=== PATIENT | female | born 1955 | race Caucasian/White ===

== ENCOUNTER → 2020-08-11 13:17 | Outpatient (CLI) | payer OTHER, SELFPAY ==
[2020-08-12 10:35] LABS: COVID19 Sendout Not Detected (Not Detected)
== END ==
PROVIDERS: Visit Provider Physician Assistant
DX: Z11.59 Encounter for screening for other viral diseases (principal)
CPT/HCPCS: 87635

== ENCOUNTER 2020-08-28 05:08 | Emergency (ER) | payer OTHER, SELFPAY ==
[2020-08-28 05:16] VITALS: BP 181/94; PULSE 86; RESP 18; TEMP 36.6; O2SAT 98; BMI 35.5
--- NOTE | 2020-08-28 05:32 | ED_ITS ---
HPI - GI Bleed General Chief complaint: GI Bleed Stated complaint: Bloody Stool Time Seen by Provider: 08/28/20 05:10 Source: patient Mode of arrival: Ambulatory Limitations: no limitations History of Present Illness HPI Narrative: Patient is a 64-year-old female here for evaluation of 2 episodes where she had loose stools and then blood on the paper when she wiped. She reports throughout the past 12 hours she has had increasing gas and has gone to the bathroom multiple times. She has been on antibiotics for the several days secondary to a sinus infection. She denies any urinary symptoms. No recent travel. Denies any abdominal pain. No vomiting. She did have a colonoscopy approximately 10 years ago and was told that everything was normal. Related Data Allergies Allergy/AdvReac Type Severity Reaction Status Date / Time No Known Drug Allergies Allergy Verified 08/28/20 05:14 Review of Systems Constitutional Constitutional: Denies fever(s) Cardiovascular Cardiovascular: Denies chest pain and Denies dyspnea Respiratory Respiratory: Denies dyspnea Gastrointestinal Gastrointestinal: Denies abdominal pain, Reports hematochezia, Reports loose stools, Denies nausea and Denies vomiting Genitourinary Genitourinary: Denies dysuria Genitourinary: Denies dysuria Musculoskeletal Musculoskeletal: Denies arthralgias and Denies myalgias Integumentary/Breasts Skin/Breast: Denies rash Hematologic/Lymphatic Hematologic/Lymphatic: Denies easy bleeding and Denies easy bruising Patient History Medical History Healthy adult (Acute) Social History Smoking Status: Never smoker Smoking Status: Never smoker alcohol intake frequency: a few times a week Substance Use Type: does not use Exam Initial Vital Signs Initial Vital Signs: Vital Signs Temperature 97.9 F 08/28/20 05:16 Pulse Rate 86 08/28/20 05:16 Respiratory Rate 18 08/28/20 05:16 Blood Pressure 181/94 H 08/28/20 05:16 Pulse Oximetry 98 08/28/20 05:16 Const General: cooperative and comfortable Limitations: mental status not altered HENMT Head: normal to inspection and normocephalic Cardio Rate: regular rate GI Inspection: non-distended Palpation: soft, No firm and No tender Rectal Exam: visual inspection normal, normal sphincter tone, heme positive stool, No laceration and No mass Skin Lesions: no lesions Rashes: no rashes Neuro General: patient alert and patient awake Cognition: normal cognition Speech: speech normal Extrem General: capillary refill normal Course Vital Signs Vital signs: Vital Signs - 8 hr 08/28/20 05:16 Temperature 97.9 F Pulse Rate 86 Respiratory Rate 18 Blood Pressure 181/94 H Pulse Oximetry 98 MDM - GI Bleed MDM Narrative Medical decision making narrative: Patient's vital signs are unremarkable. She is not on blood thinners, she has no abdominal pain. Has been on antibiotics however has not had profuse watery diarrhea. She has had only 2 episodes were she had a small amount of blood on the paper when she wiped. No hemorrhoids found on the exam. I have low suspicion for anemia secondary to blood loss. Her symptoms could potentially be caused by the antibiotics that she is on however I have low suspicion for C diff based on her history and physical exam. Feel we can hold on lab tests for now. She was instructed she did contact her primary provider to discuss a follow-up and to discuss a colonoscopy. She was given return precautions. She was given a phone number for the health human resources safety manager to contact for a follow-up. She expressed understanding and agreement. Discharge Plan Departure Patient Disposition: Home Clinical Impression: Bright red blood per rectum Instructions: DI for Rectal Bleeding Activity Restrictions/Additional Instructions: I recommend that you continue the antibiotics that you have already started. I also recommend you contact the health human resources safety manager at [phone] to help you establish a primary provider here in the area. You have no restrictions on your diet. Return to the emergency department for any new or worsening symptoms like we discussed Referrals: Doctor Carrasquillo MD [Primary Care Provider] -
[2020-08-28 05:39] VITALS: BP 156/75; PULSE 77; RESP 15; O2SAT 99
== END 2020-08-28 05:39 | disposition home or self-care (01) ==
PROVIDERS: Emergency Provider Emergency Medicine
DX: K62.5 Hemorrhage of anus and rectum (principal)
CPT/HCPCS: 99281

== ENCOUNTER → 2020-09-02 07:03 | Outpatient (CLI) | payer OTHER, SELFPAY ==
[2020-09-02 08:16] LABS: Add Manual Diff / Slide Review NO; Basophils Absolute Auto 0 /uL (0-100); Basophils Percent Auto 0.8 % (0-2); Eosinophils Absolute Auto 200 /uL (0-450); Hematocrit 41.7 % (36-46); Hemoglobin 13.9 g/dL (12.0-16.0); Lymphocytes Absolute Auto 2400 /uL (1100-4500); Mean Corpuscular HGB Conc 33.3 % (30-36); Mean Corpuscular Hemoglobin 30.9 PG (26-34); Mean Corpuscular Volume 92.7 fL (80-100); Monocytes Absolute Auto 500 /uL (0-900); Monocytes Percent Auto 8.4 % (3-14); Neutrophils Absolute Auto 2400 /uL (1500-7000); Neutrophils Percent Auto 43.8 % (50-75); Platelet Count 263 X10^3/uL (150-400); Red Cell Distribution Width 12.8 % (11.6-14.8); White Blood Cell Count 5.5 X10^3/uL (4.5-11.0)
[2020-09-02 08:49] LABS: Cholesterol 192 mg/dL (140-199); HDL Cholesterol 60 mg/dL (40-60); LDL Cholesterol Calculated 110 mg/dL (<100); Triglycerides 111 mg/dL (35-150)
[2020-09-02 08:54] LABS: Hemoglobin A1C% w Est Avg Glu 5.5 % (4.0-6.0)
== END ==
PROVIDERS: PCP Family Medicine; Referring Provider Family Medicine; Visit Provider Family Medicine
DX: Z00.01 Encounter for general adult medical examination with abnormal findings (principal); K62.5 Hemorrhage of anus and rectum
CPT/HCPCS: 36415; 80061; 83036; 85025

== ENCOUNTER → 2020-11-10 09:37 | Outpatient (CLI) | payer OTHER, SELFPAY ==
[2020-11-10 10:58] LABS: COVID19 -Nasal RAPID Negative (Negative)
== END ==
PROVIDERS: PCP Family Medicine; Visit Provider Surgery
DX: Z01.812 Encounter for preprocedural laboratory examination (principal); Z20.822 Contact with and (suspected) exposure to COVID-19
CPT/HCPCS: 87635; C9803

== ENCOUNTER 2020-11-11 06:40 | Day surgery (SDC) | payer OTHER, SELFPAY ==
--- NOTE | 2020-11-11 | PATH_ITS ---
[facility] Accession Number: [id number] . 01 Material submitted: . colon - POLYP AT 100 CM . 01 Diagnosis: Colon Polyp at 100 cm, Biopsy: Tubular adenoma. Additional step sections examined. MRV 11/18/2020 1300 Local . 01 Electronically signed: . Gigi Montes MD, PhD, Pathologist NPI- [id number] . 01 Gross description: . POLYP AT 100 CM: Received in formalin are 3 fragment(s) of navarrete, soft tissue measuring 0.1 x 0.1 x 0.1 cm to 0.3 x 0.2 x 0.2 cm submitted entirely in 1 cassette(s) /MIHIR 11/14/2020 1916 Local . 01 Pathologist provided ICD-10: D12.6 . 01 CPT . 134224 Performed at: 01 [facility] [address] [address] [place] [address] [id number] MD Emile Quintero MD Phone: [phone]
[2020-11-11 07:16] VITALS: BP 153/93; PULSE 100; RESP 20; TEMP 36.2; O2SAT 97; BMI 35.5
[2020-11-11] MEDS: SODIUM CHLORIDE 0.9% 1,000 ML 200 ML IV (07:31)
--- NOTE | 2020-11-11 07:39 | P.HP_ITS ---
History of Present Illness History of Present Illness Date Patient Seen: 11/11/20 Time Patient Seen: 07:39 Chief complaint: [facility] Narrative: This is a 64-year-old woman with history of obesity (BMI 34), colonoscopy 10 years ago, which per the patient was reportedly normal, who is here for a complaint of rectal bleeding. Twice over the last month she has had blood in the stool. She denies any rectal pain, or hemorrhoidal swellings. She went into the ER for 1 of the episodes of rectal bleeding, and was found to have normal hemoglobin, with guaiac-positive stool, and was sent home and referred for outpatient colonoscopy. She reports some vague periumbilical tenderness, but denies any other significant abdominal pain. She has had some burping and bloating, but denies any heartburn, or epigastric pain, and denies nausea or vomiting. She denies any constipation, although she has had some diarrhea ever since her last trip to the ER. She has noticed some decrease in her appetite is well. She denies any other concerning symptoms, and says she has no primary relatives with any history of colon polyps or colon cancers. Interval change: no more bleeding since episode mentioned above. ROS positive for abdominal pain, change in bowel habits, diarrhea, easy bruising. Thirteen system review is otherwise negative other than as mentioned below and in HPI. PE: GENERAL: Well groomed and cooperative. Appears stated age. Answers questions promptly and appropriately. Vital signs noted. HENT: Normocephalic, atraumatic. Hearing intact. EYES: Conjunctiva pink, sclera white, no periorbital swelling. CARDIOVASCULAR: Regular rate. No pedal edema. RESPIRATORY: Non-tachypneic, breathing comfortably on room air. GASTROINTESTINAL: Abdomen soft and non-distended GENITALURINARY: No flank tenderness. MUSCULOSKELETAL: Equal tone and mass bilaterally. SKIN: Warm, dry, soft, appropriate color for ethnicity. No other lesions, rashes, or wounds. NEURO: Alert and Oriented X 3. No gross sensory deficits, or cognitive issues. PSYCH: Appropriate affect and mood. Patient History Medical History Abnormal Pap smear of cervix (~2009) Allergies (~1999) Ankle pain (~1973) Chicken pox Healthy adult Herpes (~1985) Measles Mumps Seasonal allergies Surgical History Anesthesia History of ankle surgery (~2017) History of ankle surgery (~1973) Family & Social History Family History Mother Cancer Father History of heart disease Hyperlipidemia Stroke Brother History of heart disease Brother Fall Brother History of heart disease Hypertension Social History: household members spouse Tobacco & Substance use: Smoking Status Never smoker alcohol intake current alcohol intake frequency a few times a week Substance Use Type does not use Meds Home Medications and Allergies Home Medications Medication Instructions Recorded Confirmed Type multivitamin 1 cap PO DAILY 08/31/20 11/11/20 History omega 6-fqj-wpd-fish oil 1,200 mg 1 cap PO DAILY 08/31/20 11/11/20 History (144 mg-216 mg) capsule loratadine 10 mg tablet 10 mg PO DAILY 10/11/20 11/11/20 History Allergies Allergy/AdvReac Type Severity Reaction Status Date / Time No Known Drug Allergies Allergy Verified 11/11/20 07:11 Exam Vital Signs (past 8 hours): - 11/11/20 07:16 Temperature 97.2 F L Pulse Rate 100 H Respiratory Rate 20 Blood Pressure 153/93 H Pulse Oximetry 97 Oxygen Delivery Method Room Air Oxygen Flow Rate 0 Assessment & Plan Assessment & Plan narrative: Risks and benefits of screening colonoscopy and possible polypectomy were discussed with the patient including risk of bleeding, perforation, need for additional procedures, risks of anesthesia. The patient desires to proceed with the colonoscopy procedure. COVID-19 COVID-19 status: Negative Result date/Date tested (Pos, Neg/Pending): 11/10/20 Time Spent With Patient Time with patient: 15-24 minutes Quality VTE Deep Vein Thrombosis/Pulmonary Embolism Present on Admission: No
--- NOTE | 2020-11-11 07:43 | P.OP.ENDO_ITS ---
Operative Date/Time/Diagnoses Date of procedure: 11/11/20 Time of procedure: 07:43 Pre-op diagnosis: Rectal bleeding, history of colonoscopy 10 years ago Post-op diagnosis: other (Single polyp at 100cm, internal hemorrhoids) Procedure & Clinicians Study performed: Colonoscopy Polypectomy with Jumbo forceps Procedural sedation performed by the endoscopist Same procedure as scheduled: Yes Indications: Rectal bleeding, history of colonoscopy 10 years ago Surgeon: Tasha Lauren Procedure Notes SCOAP/Timeout: Performed Procedure in detail: The patient was brought to the room and placed in left lateral decubitus position with all bony prominences padded. A time-out was performed and then the patient was given procedural sedation starting with 4 mg of Versed and 100 mcg of fentanyl. A total of 5 mg of Versed and 200 micro g of fentanyl were given for the entire procedure. Vitals were monitored throughout the procedure and remained stable. Once adequately sedated, the procedure was begun. A rectal exam was performed revealing no abnormalities. The colonoscope was then introduced to the rectum and advanced to the cecum in the usual fashion. The cecum was identified by the appendiceal orifice, the mucosal tri- fold, and the ileocecal valve. The scope was then retracted while rotating side to side and examining each mucosal fold. A single polyp was seen and removed using Jumbo forceps at 100 cm in the ascending colon. At the conclusion of the procedure retroflexion was performed and small grade 2-3 internal hemorrhoids without stigmata of recent bleeding were seen. The scope was then withdrawn from the rectum the procedure was concluded. The patient tolerated the procedure well and was transferred to the PACU in stable condition. Scope withdrawal time: 13 Sedation minutes: 24 Findings: polyp Specimen(s): other (Single polyp) Complications: none Impression: Single adenomatous appearing polyp, likely benign/precancerous Post-procedure Recommendations: Colonscopy in 5 years (Depending on pathology results) Follow up: as needed Disposition: PACU
[2020-11-11] MEDS: fentaNYL 250 MCG/5 ML INJ IV (07:52)
[2020-11-11] MEDS: MIDAZOLAM 5 MG/5 ML VIAL IV (07:52)
[2020-11-11 08:16] VITALS: BP 146/90; PULSE 85; RESP 15; TEMP 36.1; O2SAT 96
[2020-11-11 08:21] VITALS: BP 166/96; PULSE 84; RESP 20; O2SAT 97
== END 2020-11-11 08:45 | disposition home or self-care (01) ==
PROVIDERS: PCP Family Medicine; Referring Provider Surgery; Visit Provider Surgery
PROC: 0DJD8ZZ Inspection of Lower Intestinal Tract, Via Natural or Artificial Opening Endoscopic (ICD-10-PCS; CPT 45378; principal; 2020-11-11 07:45)
DX: K64.1 Second degree hemorrhoids (principal); D12.6 Benign neoplasm of colon, unspecified
CPT/HCPCS: 45380; 99152; J2250; J3010

== ENCOUNTER → 2021-06-26 14:21 | Outpatient (CLI) | payer OTHER, SELFPAY ==
[2021-06-26 16:42] LABS: COVID19 -Nasal RAPID Negative (Negative)
== END ==
PROVIDERS: PCP Family Medicine; Visit Provider Physician Assistant
DX: Z20.822 Contact with and (suspected) exposure to COVID-19 (principal)
CPT/HCPCS: 87635

== ENCOUNTER → 2021-09-18 07:02 | Outpatient (CLI) | payer OTHER, SELFPAY ==
[2021-09-18 08:36] LABS: Add Manual Diff / Slide Review NO; Basophils Absolute Auto 100 /uL (0-100); Eosinophils Absolute Auto 200 /uL (0-450); Eosinophils Percent Auto 3.1 % (2-4); Hematocrit 41.9 % (36-46); Hemoglobin 13.9 g/dL (12.0-16.0); Lymphocytes Absolute Auto 1800 /uL (1100-4500); Lymphocytes Percent Auto 34.6 % (25-40); Mean Corpuscular HGB Conc 33.2 % (30-36); Mean Corpuscular Hemoglobin 30.6 PG (26-34); Mean Corpuscular Volume 92.3 fL (80-100); Monocytes Absolute Auto 500 /uL (0-900); Monocytes Percent Auto 8.9 % (3-14); Neutrophils Absolute Auto 2700 /uL (1500-7000); Neutrophils Percent Auto 52.4 % (50-75); Platelet Count 268 X10^3/uL (150-400); Red Blood Cell Count 4.53 X10^6/uL (4.0-5.2); Red Cell Distribution Width 12.9 % (11.6-14.8); White Blood Cell Count 5.2 X10^3/uL (4.5-11.0)
[2021-09-18 08:55] LABS: Alanine Aminotransferase 18 IU/L (<35); Albumin 4.4 g/dL (3.5-5.0); Albumin Globulin Ratio 1.4 (1.0-2.8); Alkaline Phosphatase 73 U/L (38-126); Aspartate Aminotransferase 21 IU/L (14-36); BUN Creatinine Ratio 21.9 (6-22); Bilirubin Total 0.5 mg/dL (0.2-1.3); Blood Urea Nitrogen 16 mg/dL (7-17); Calcium 9.8 mg/dL (8.4-10.2); Carbon Dioxide 29 mmol/L (22-32); Chloride 103 mmol/L (98-107); Cholesterol 211 mg/dL (140-199); Estimated Glomerular Filt Rate > 60.0 mL/min (>60); Globulin 3.1 g/dL (1.7-4.1); Glucose 103 mg/dL (80-110); HDL Cholesterol 74 mg/dL (40-60); HEMOLYSIS < 15 (0-50); LDL Cholesterol Calculated 113 mg/dL (<100); Potassium 4.6 mmol/L (3.4-5.1); Sodium 139 mmol/L (137-145); Total Protein 7.5 g/dL (6.3-8.2); Triglycerides 121 mg/dL (35-150)
[2021-09-18 09:17] LABS: TSH w/ Reflex to FT4 2.68 uIU/mL (0.47-4.68)
[2021-09-18 09:47] LABS: Creatinine Urine Random 159.2 mg/dL
[2021-09-18 09:51] LABS: Microalbumi Creatinin Ratio Ur 4.3 ug/mg CR (<30); Microalbumin Urine Random 0.7 mg/dL (0-1.6)
== END ==
PROVIDERS: PCP Family Medicine; Referring Provider Family Medicine; Visit Provider Family Medicine
DX: Z00.00 Encounter for general adult medical examination without abnormal findings (principal); E78.5 Hyperlipidemia, unspecified; R03.0 Elevated blood-pressure reading, without diagnosis of hypertension
CPT/HCPCS: 36415; 80053; 80061; 82043; 82570; 84443; 85025

== ENCOUNTER → 2021-10-28 10:35 | Outpatient (CLI) | payer OTHER, SELFPAY ==
[2021-10-28 11:45] LABS: COVID19 -Nasal RAPID POSITIVE (Negative)
== END ==
PROVIDERS: PCP Family Medicine; Visit Provider Physician Assistant
DX: U07.1 COVID-19 (principal); Z20.822 Contact with and (suspected) exposure to COVID-19
CPT/HCPCS: 87635

== ENCOUNTER → 2022-09-17 07:02 | Outpatient (CLI) | payer OTHER, SELFPAY ==
[2022-09-17 07:43] LABS: Add Manual Diff / Slide Review NO; Basophils Absolute Auto 100 /uL (0-100); Basophils Percent Auto 1.3 % (0-2); Eosinophils Absolute Auto 100 /uL (0-450); Eosinophils Percent Auto 2.6 % (2-4); Hematocrit 41.2 % (36-46); Hemoglobin 13.9 g/dL (12.0-16.0); Lymphocytes Absolute Auto 2200 /uL (1100-4500); Lymphocytes Percent Auto 42.7 % (25-40); Mean Corpuscular HGB Conc 33.8 % (30-36); Mean Corpuscular Hemoglobin 30.7 PG (26-34); Mean Corpuscular Volume 90.8 fL (80-100); Monocytes Absolute Auto 500 /uL (0-900); Monocytes Percent Auto 8.9 % (3-14); Neutrophils Absolute Auto 2300 /uL (1500-7000); Neutrophils Percent Auto 44.5 % (50-75); Platelet Count 280 X10^3/uL (150-400); Red Blood Cell Count 4.54 X10^6/uL (4.0-5.2); Red Cell Distribution Width 13.2 % (11.6-14.8); White Blood Cell Count 5.1 X10^3/uL (4.5-11.0)
[2022-09-17 08:12] LABS: Alanine Aminotransferase 24 IU/L (<35); Albumin 4.3 g/dL (3.5-5.0); Albumin Globulin Ratio 1.5 (1.0-2.8); Alkaline Phosphatase 71 U/L (38-126); Aspartate Aminotransferase 20 IU/L (14-36); BUN Creatinine Ratio 21.5 (6-22); Bilirubin Total 0.4 mg/dL (0.2-1.3); Blood Urea Nitrogen 17 mg/dL (7-17); Calcium 9.4 mg/dL (8.4-10.2); Carbon Dioxide 30 mmol/L (22-32); Chloride 104 mmol/L (98-107); Cholesterol 191 mg/dL (140-199); Estimated Glomerular Filt Rate > 60 mL/min (>60); Globulin 2.9 g/dL (1.7-4.1); Glucose 99 mg/dL (80-110); HDL Cholesterol 73 mg/dL (40-60); HEMOLYSIS < 15 (0-50); LDL Cholesterol Calculated 104 mg/dL (<100); Potassium 4.3 mmol/L (3.4-5.1); Sodium 141 mmol/L (137-145); Total Protein 7.2 g/dL (6.3-8.2); Triglycerides 69 mg/dL (35-150)
[2022-09-17 08:41] LABS: Creatinine Urine Random 136.2 mg/dL
[2022-09-17 08:45] LABS: Microalbumi Creatinin Ratio Ur 11.7 ug/mg CR (<30); Microalbumin Urine Random 1.6 mg/dL (0-1.6)
[2022-09-17 08:47] LABS: TSH w/ Reflex to FT4 2.75 uIU/mL (0.47-4.68)
== END ==
PROVIDERS: PCP Family Medicine; Referring Provider Family Medicine; Visit Provider Family Medicine
DX: E78.2 Mixed hyperlipidemia (principal); I10 Essential (primary) hypertension; R42 Dizziness and giddiness
CPT/HCPCS: 36415; 80053; 80061; 82043; 82570; 84443; 85025

== ENCOUNTER → 2022-09-17 15:37 | Outpatient (CLI) | payer OTHER, SELFPAY ==
--- NOTE | 2022-09-17 15:38 | DI.MRI.S_ITS ---
PROCEDURE: MR KNEE LT WO CON INDICATIONS: ACUTE PAIN IN LEFT KNEE TECHNIQUE: Noncontrast sagittal PD fast spin echo and T2 fast spin echo with fat saturation, sagittal 3-D FLASH with fat saturation; coronal T1 spin echo and PD fast spin echo with fat saturation, and axial PD fast spin echo with fat saturation through the knee. COMPARISON: None. FINDINGS: Image quality: Excellent Menisci: Medial: Suspected fraying of the peripheral surface. Meniscocapusular junction maintained. Lateral: Complex tear of the body and anterior horn, also extending to the posterior horn. There is free edge truncation. Meniscal popliteal fascicles are intact. Cruciate ligaments: Intact Medial structures: MCL: Intact Pes anserine tendons: Intact Semimembranosus: Intact Lateral structures: LCL: Intact Biceps femoris: Intact IT band: Intact Popliteus tendon: Intact Anterior structures: Extensor mechanism: Intact. Fat pads: Mild edema Hoffa's fat pad, nonspecific Medial retinaculum: Intact. Trochlea: The trochlea has overall normal morphology. TT TG distance is normal. The patella is slightly tilted laterally. Bone and joint: Bones: No fracture, dislocation, or suspicious edema Cartilage: Focal marrow edema secondary to a focal fissure at the median ridge of the patella. Mild to moderate chondromalacia is seen elsewhere. Joint space: Minimal effusion. Ponce's cyst: Small Ponce's cyst Soft tissues: No significant vascular or other soft tissue pathology. IMPRESSION: Complex tear of the lateral meniscus. Cruciate ligaments are intact. The patella is tilted laterally, with mild superior lateral Hoffa's fat pad edema. These findings can sometimes be seen with maltracking, although TT TG distance is within normal limits. Focal patellar median ridge cartilage fissure with underlying edema. Other findings as above. Dictated by: Patrick Del Rio M.D. on 09/17/2022 at 16:52 Approved by: Patrick Del Rio M.D. on 09/17/2022 at 16:58
== END ==
PROVIDERS: PCP Family Medicine; Referring Provider Student in an Organized Health Care Education/Training Program; Visit Provider Student in an Organized Health Care Education/Training Program
DX: S83.272A Complex tear of lateral meniscus, current injury, left knee, initial encounter (principal); M94.262 Chondromalacia, left knee; M25.562 Pain in left knee; M71.22 Synovial cyst of popliteal space [Baker], left knee; E78.2 Mixed hyperlipidemia; I10 Essential (primary) hypertension; R42 Dizziness and giddiness
CPT/HCPCS: 36415; 73721; 80053; 80061; 82043; 82570; 84443; 85025

== ENCOUNTER → 2022-10-04 09:08 | Outpatient (CLI) | payer OTHER, SELFPAY ==
--- NOTE | 2022-10-04 09:09 | DI.CT.S_ITS ---
PROCEDURE: CT SINUS SCREEN WO CON INDICATIONS: Chronic sinus and left ear pain with lightheadness TECHNIQUE: Noncontrast 3.0 mm axial images acquired from the frontal sinuses to the mid-sella, with coronal and sagittal reformats. For radiation dose reduction, the following was used: automated exposure control, adjustment of mA and/or kV according to patient size. COMPARISON: None. FINDINGS: Image quality: There is artifact associated with the metallic hardware. Maxillary Sinuses: No bony remodeling or destruction. Sinuses are clear. Ethmoid Air Cells: No bony remodeling or destruction. Sinuses are clear. Sphenoid Sinuses: No bony remodeling or destruction. Sinuses are clear. Frontal Sinuses: No bony remodeling or destruction. Sinuses are clear. Ostiomeatal Complexes: Ostiomeatal complexes are patent, yet they are constitutionally narrowed, with bilateral Li cells. Miscellaneous: Visualized intra-orbital contents are normal. 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 There is mild leftward nasal septal deviation. IMPRESSION: No active paranasal sinus disease is seen. Constitutionally narrowed ostiomeatal complexes are seen, with bilateral Li cells. 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 Mild leftward nasal septal deviation. Dictated by: Dimitry Levy M.D. on 10/04/2022 at 9:04 Approved by: Dimitry Levy M.D. on 10/04/2022 at 9:05
== END ==
PROVIDERS: PCP Family Medicine; Referring Provider Family Medicine; Visit Provider Family Medicine
DX: J32.9 Chronic sinusitis, unspecified (principal); R42 Dizziness and giddiness; J34.2 Deviated nasal septum; J34.3 Hypertrophy of nasal turbinates
CPT/HCPCS: 70486

== ENCOUNTER 2022-10-25 09:35 | Outpatient (RCR) | payer OTHER, SELFPAY ==
[2022-10-25 09:45] VITALS: BP 124/90; BP 126/80; BP 130/88
--- NOTE | 2022-10-25 16:15 | PT.OIE ---
Current Diagnoses Dizziness and giddiness (10/25/22) Past Medical History (Last Updated 10/08/22 @ 07:39 by Jake Moran MD) Abnormal Pap smear of cervix Allergies (~1999) Ankle pain (~1973) Chicken pox Dora bullosa Elevated blood pressure reading in office without diagnosis of hypertension Healthy adult Herpes (~1985) Hyperlipidemia Hypertension Measles Mumps Seasonal allergies Past Surgical History (Last Reviewed 11/11/20 @ 07:40 by Tasha Lauren MD) Anesthesia History of ankle surgery (~2016) History of ankle surgery (~1973) Visit Care Team Role Provider Type Jake Moran MD Attending Provider Physician Primary Care Provider Referring Provider Specialty: Family Practice Address: [address] [place] [address], [facility] Email: [email or web address] Physical Therapy Initial Evaluation PT-OP-A Visit Information Start: 10/25/22 15:59 Freq: Status: Active Protocol: Document 10/25/22 09:45 DCW (Rec: 10/25/22 16:15 DCW [id number]) Out-Patient Physical Therapy Visit Information Visit Information Visit Type Initial Evaluation Visit Start Time 09:45 Visit Stop Time 10:30 Total Visit Minutes 45 Visit Number 1 Number of STOREROOM SUPERVISOR Visits 0 Evaluation Information Evaluation Date 10/25/22 PT-OP-B Current Condition Start: 10/25/22 15:59 Freq: Status: Active Protocol: Document 10/25/22 09:45 DCW (Rec: 10/25/22 16:15 DCW [id number]) Current Condition History of Current Condition Onset Date June Current Complaints Lightheadedness History of Current Condition Pt is a 66 year old female complaining of a three month history of light-headedness that seems to be somewhat dependent on positioning. Pt reports episodes last vague amounts of time, and has difficulty describing actual subjective complaints. Initial symptoms were a lightheaded and imbalanced sensation after getting up from the chair to her kitchen, no associated vertigo, syncope, or nausea. Symptoms remained for ~10 days , but seemingly only with certain movements, it was not a constant sensation. Since those initial 10 days, symptoms have decreased in intensity, but are still present, typically when bending down or when she uses an exercise bike, although she feels fine when using her actual road bike. Pt denies recent hearing changes, diplopia, dysarthria, discoordination, or decreased mentation/consciousness. Pt denies hx of hyperlipidemia, diabetes, arrhythmia, head trauma, seizure, neck problems , CVA, or excessive smoking or drinking. Prior Treatments and Tests Pt received sinus CT, which did not show cause of symptoms Future Testing and Treatments Planned Pt being seen by ENT next month PT-OP-C Subjective Start: 10/25/22 15:59 Freq: Status: Active Protocol: Document 10/25/22 09:45 DCW (Rec: 10/25/22 16:15 DCW [id number]) OP-PT Subjective Patient Comments Patient Comments I got seen in the ED, and they said it might be vertigo and to look up exercises on google, but then I saw my PCP, and he told me not to do that , and then I've had people tell me what their or sister did for it, and it's just all conflicting information. PT-OP-H Neuro Start: 10/25/22 15:59 Freq: Status: Active Protocol: Document 10/25/22 09:45 DCW (Rec: 10/25/22 16:15 DCW [id number]) Vital Signs Blood Pressure Standing Blood Pressure (90/60-120/80 mmHg) 124/90 H Blood Pressure Source Manual Cuff,Right Upper Extremity Sitting Blood Pressure (90/60-120/80 mmHg) 130/88 H Blood Pressure Source Manual Cuff,Right Upper Extremity Supine Blood Pressure (90/60-120/80 mmHg) 126/80 H Blood Pressure Source Manual Cuff,Right Upper Extremity PT-OP-O Vestibular Start: 10/25/22 15:59 Freq: Status: Active Protocol: Document 10/25/22 09:45 DCW (Rec: 10/25/22 16:15 DCW [id number]) Vestibular Assessment Screening Tests Vestibular Artery Screen Negative Auditory Tests Rai Test Within normal limits Rinne Test Negative Air Conduction Results Right Greater Visual Testing Smooth Pursuits Horizontal WNL Smooth Pursuits Vertical WNL Saccades Horizontal WNL Saccades Vertical WNL Heave Test Negative Thrust Head Negative Gio String Test WNL Convergence Test WNL DVA (Line Degradation) 3 Spontaneous Nystagmus Negative Positional Testing Heena-Hallpike Negative Left,Negative Right Rolling Test Negative Left,Negative Right PT-OP-T Assessment and Plan Start: 10/25/22 15:59 Freq: Status: Active Protocol: Document 10/25/22 09:45 DCW (Rec: 10/25/22 16:15 DCW [id number]) Physical Therapy Assessment Assessment Summary Assessment Vestibular examination entirely negative today. No indication for cause of pt's subjective complaints, either peripheral or central. Pt subjective history slightly vague, but did not sound likely to be a vestibular component. With positional complaints of light-headedness , may indicate potential orthostasis, however orthostatic BPs today were unremarkable. Pt unlikely to benefit from further skilled vestibular intervention at this time. A second examination with a new referral may be beneficial if there is a change in symptoms or her visit to an ENT uncovers any further vestibular deficiency. Physical Therapy Plan Frequency and Duration Frequency of Treatment 1x/Week Plan of Care Start Date 10/25/22 Plan of Care End Date 10/26/22 Discharge Physical Therapy Discharge Comments Pt unlikely to benefit from vestibular therapy at this time.
--- NOTE | 2022-10-25 16:15 | PT.OPPOC ---
Physical, Occupational & Speech Therapy At [facility] Current Diagnoses Dizziness and giddiness (10/25/22) Visit Care Team Role Provider Type Jake Moran MD Attending Provider Physician Primary Care Provider Referring Provider Specialty: Family Practice Address: [address] [place] [address], [id number] Email: [email or web address] Plan Of Care PT-OP-T Assessment and Plan Start: 10/25/22 15:59 Freq: Status: Active Protocol: Document 10/25/22 09:45 DCW (Rec: 10/25/22 16:15 DCW [id number]) Physical Therapy Assessment Assessment Summary Assessment Vestibular examination entirely negative today. No indication for cause of pt's subjective complaints, either peripheral or central. Pt subjective history slightly vague, but did not sound likely to be a vestibular component. With positional complaints of light-headedness , may indicate potential orthostasis, however orthostatic BPs today were unremarkable. Pt unlikely to benefit from further skilled vestibular intervention at this time. A second examination with a new referral may be beneficial if there is a change in symptoms or her visit to an ENT uncovers any further vestibular deficiency. Physical Therapy Plan Frequency and Duration Frequency of Treatment 1x/Week Plan of Care Start Date 10/25/22 Plan of Care End Date 10/26/22 Discharge Physical Therapy Discharge Comments Pt unlikely to benefit from vestibular therapy at this time. Plan of Care Dates Plan of Care Start Date 10/25/22 Plan of Care End Date 10/26/22 Electronically Signed by: Mirza Hawk, PT 10/25/22 [id number] If you are in agreement with this Plan of Care, please return a signed and dated copy. I have reviewed this Plan of Care and certify that the skilled therapy services above are required to meet the patient?s needs. Physician Signature Date Printed Name and Credentials Clinical Instructor Signature Printed Name and Credentials
== END 2022-10-30 10:36 | disposition home or self-care (01) ==
LOC: PHYS 09:35
PROVIDERS: PCP Family Medicine; Referring Provider Family Medicine; Visit Provider Family Medicine
DX: R42 Dizziness and giddiness (principal)
CPT/HCPCS: 97161

== ENCOUNTER → 2023-08-31 07:53 | Outpatient (CLI) | payer MEDICARE, OTHER, SELFPAY ==
[2023-08-31 09:02] LABS: Add Manual Diff / Slide Review NO; Basophils Absolute Auto 100 /uL (0-100); Basophils Percent Auto 1.2 % (0-2); Eosinophils Absolute Auto 100 /uL (0-450); Eosinophils Percent Auto 3.2 % (2-4); Hemoglobin 12.8 g/dL (12.0-16.0); Lymphocytes Absolute Auto 1400 /uL (1100-4500); Lymphocytes Percent Auto 32.1 % (25-40); Mean Corpuscular HGB Conc 33.8 % (30-36); Mean Corpuscular Hemoglobin 30.9 PG (26-34); Mean Corpuscular Volume 91.3 fL (80-100); Monocytes Absolute Auto 400 /uL (0-900); Monocytes Percent Auto 10.2 % (3-14); Neutrophils Absolute Auto 2300 /uL (1500-7000); Neutrophils Percent Auto 53.3 % (50-75); Platelet Count 295 X10^3/uL (150-400); Red Blood Cell Count 4.16 X10^6/uL (4.0-5.2); Red Cell Distribution Width 12.9 % (11.6-14.8); White Blood Cell Count 4.3 X10^3/uL (4.5-11.0)
[2023-08-31 09:22] LABS: Alanine Aminotransferase 19 IU/L (<35); Albumin 4.2 g/dL (3.5-5.0); Albumin Globulin Ratio 1.4 (1.0-2.8); Alkaline Phosphatase 74 U/L (38-126); Aspartate Aminotransferase 26 IU/L (14-36); BUN Creatinine Ratio 25.8 (6-22); Bilirubin Total 0.5 mg/dL (0.2-1.3); Blood Urea Nitrogen 17 mg/dL (7-17); Calcium 9.5 mg/dL (8.4-10.2); Carbon Dioxide 27 mmol/L (22-32); Chloride 104 mmol/L (98-107); Cholesterol 196 mg/dL (140-199); Estimated Glomerular Filt Rate > 60 mL/min (>60); Globulin 3.1 g/dL (1.7-4.1); Glucose 95 mg/dL (80-110); HDL Cholesterol 63 mg/dL (40-60); HEMOLYSIS 17 (0-50); LDL Cholesterol Calculated 119 mg/dL (<100); Potassium 4.2 mmol/L (3.4-5.1); Sodium 139 mmol/L (137-145); Total Protein 7.3 g/dL (6.3-8.2); Triglycerides 71 mg/dL (35-150)
[2023-08-31 09:34] LABS: Creatinine Urine Random 171.8 mg/dL
[2023-08-31 09:38] LABS: Microalbumi Creatinin Ratio Ur 5.2 ug/mg CR (<30); Microalbumin Urine Random 0.9 mg/dL (0-1.6)
[2023-08-31 09:53] LABS: TSH w/ Reflex to FT4 1.46 uIU/mL (0.47-4.68)
== END ==
PROVIDERS: PCP Family Medicine; Referring Provider Family Medicine; Visit Provider Family Medicine
DX: Z00.00 Encounter for general adult medical examination without abnormal findings (principal); I10 Essential (primary) hypertension; E78.2 Mixed hyperlipidemia
CPT/HCPCS: 36415; 80053; 80061; 82043; 82570; 84443; 85025

== ENCOUNTER → 2024-05-14 08:44 | Outpatient (CLI) | payer MEDICARE, OTHER, SELFPAY ==
--- NOTE | 2024-05-14 08:46 | DI.RAD.S_ITS ---
PROCEDURE: XR HIP W PEL IF DONE RT 2V INDICATIONS: chronic low back pain TECHNIQUE: AP pelvis with lateral view(s) of the right hip(s). COMPARISON: None. FINDINGS: Bones: No fractures or dislocations. Pelvic ring appears intact. Mild symmetric femoroacetabular joint degeneration. Minimal marginal spur. No suspicious bony lesions. Soft tissues: The visualized bowel gas pattern is normal. No suspicious soft tissue calcifications. IMPRESSION: Mild, symmetric hip joint degeneration. Dictated by: Portia Rader M.D. on 05/14/2024 at 16:32 Approved by: Portia Rader M.D. on 05/14/2024 at 16:33
--- NOTE | 2024-05-14 08:46 | DI.RAD.S_ITS ---
PROCEDURE: XR LUMBAR SPINE 2-3V INDICATIONS: chronic low back pain TECHNIQUE: 3 views of the lumbar spine were acquired. COMPARISON: None. FINDINGS: Bones: 5 [id number] vertebrae are present. There is normal AP bony alignment. Mild upper lumbar levocurvature. Minor L3-4 leftward subluxation. No vertebral body compression fractures. No suspicious bony lesions. Soft tissues: Overlying bowel gas pattern is normal. No suspicious soft tissue calcifications. IMPRESSION: Minor levoscoliosis, probably due to asymmetric disc degeneration. Dictated by: Portia Rader M.D. on 05/14/2024 at 16:33 Approved by: Portia Rader M.D. on 05/14/2024 at 16:34
== END ==
LOC: LAB 08:45 → RAD 08:46
PROVIDERS: PCP Family Medicine; Referring Provider Family Medicine; Visit Provider Family Medicine
DX: S76.319A Strain of muscle, fascia and tendon of the posterior muscle group at thigh level, unspecified thigh, initial encounter (principal); S76.019A Strain of muscle, fascia and tendon of unspecified hip, initial encounter; M16.11 Unilateral primary osteoarthritis, right hip; M54.50 Low back pain, unspecified; I10 Essential (primary) hypertension; G89.29 Other chronic pain; X58.XXXA Exposure to other specified factors, initial encounter
CPT/HCPCS: 72100; 73502

== ENCOUNTER → 2024-07-17 19:10 | Outpatient (CLI) | payer MEDICARE, OTHER, SELFPAY ==
--- NOTE | 2024-07-17 19:13 | DI.MRI.S_ITS ---
PROCEDURE: MR LUMBAR SPINE WO CON INDICATIONS: Right L5 radiculopathy TECHNIQUE: Noncontrast sagittal T1 spin echo and T2 fast echo, sagittal STIR, and T2 fast spin echo through the lumbar spine. In cases with scoliosis, additional coronal T2 fast spin echo may be performed. COMPARISON: [facility], CR, XR LUMBAR SPINE 2-3V, 05/14/2024, 8:48. FINDINGS: Image quality: Excellent. Alignment and Curvature: Mild minimal convex curvature of the lumbar spine. No significant spondylolisthesis. Bone Marrow: Marrow is of normal overall signal. No acute vertebral body compression fractures. Spinal Cord: Conus medullaris terminates at the L1 level. Visualized cord demonstrates normal signal and size. Paraspinous Soft Tissues: No paravertebral masses. Grade 3 fatty infiltration of the paraspinous musculature. T12-L1: No significant spinal canal stenosis or neural foraminal narrowing. L1-L2: No significant spinal canal stenosis or neural foraminal narrowing. L2-L3: Disc desiccation and mild circumferential disc bulging. No significant spinal canal stenosis or neural foraminal narrowing. L3-L4: Disc desiccation and mild circumferential disc bulging as well as moderate bilateral facet hypertrophy. Findings result in mild narrowing of the spinal canal without significant neural foraminal narrowing. L4-L5: Disc desiccation and mild circumferential disc bulging as well as moderate bilateral facet hypertrophy. Findings result in mild narrowing of the spinal canal and mild bilateral neural foraminal narrowing. L5-S1: Disc desiccation and mild circumferential disc bulging as well as moderate bilateral facet hypertrophy. Small right posterolateral annular fissure is present. No significant spinal canal stenosis or neural foraminal narrowing. IMPRESSION: Mild multilevel degenerative disc disease and facet hypertrophy as described in detail in the body of the report. No high-grade spinal canal stenosis or high-grade neural foraminal narrowing. Approved by: Mauricio Blanc M.D. on 07/20/2024 at 15:24
== END ==
LOC: MRI 19:11
PROVIDERS: PCP Family Medicine; Referring Provider Physical Medicine & Rehabilitation; Visit Provider Physical Medicine & Rehabilitation
DX: M51.16 Intervertebral disc disorders with radiculopathy, lumbar region (principal); M47.26 Other spondylosis with radiculopathy, lumbar region; M51.17 Intervertebral disc disorders with radiculopathy, lumbosacral region; M47.27 Other spondylosis with radiculopathy, lumbosacral region
CPT/HCPCS: 72148

== ENCOUNTER → 2024-08-24 | Outpatient (CLI) | payer MEDICARE, OTHER, SELFPAY ==
--- NOTE | 2024-08-24 | DI.MG.S_ITS ---
BILATERAL DIGITAL SCREENING MAMMOGRAM 3D/2D WITH CAD: 08/24/2024 CLINICAL: Routine screening. Family history of breast cancer. Comparison mammograms 05/15/2022, 04/13/2021, 04/01/2020, 01/21/2019. There are scattered areas of fibroglandular density (category b / 25%-50% glandular tissue). Current study was also evaluated with a Computer Aided Detection (CAD) system. No significant masses, calcifications, or other findings are seen in either breast. IMPRESSION: NEGATIVE There is no mammographic evidence of malignancy. A 1 year screening mammogram is recommended. Based on the Tyrer Cuzick model (a risk assessment model) the patient's lifetime risk is 14.3% and her 10 year risk is 7.3%. According to the ACR, ACS, and NCCN guidelines, an annual breast MRI exam along with mammogram is recommended if the patient's lifetime risk is 20% or greater. This exam was interpreted at Station ID: [id number]. NOTE: For mammograms, a report in lay terms will be sent to the patient. Approximately 15% of breast malignancies will not be visualized mammographically. In the management of a palpable breast mass, a negative mammogram must not discourage biopsy of a clinically suspicious lesion. Electronically Signed By: Yair Farah M.D. [facility] [place]09/09/2024 17:57:58 letter sent: Normal Exam ACR BI-RADS Category 1: Negative
== END ==
PROVIDERS: PCP Family Medicine; Referring Provider Family Medicine; Visit Provider Family Medicine
DX: Z12.31 Encounter for screening mammogram for malignant neoplasm of breast (principal); E80.3 Defects of catalase and peroxidase
CPT/HCPCS: 77063; 77067

== ENCOUNTER 2024-09-01 07:22 | Outpatient (CLI) | payer MEDICARE, OTHER, SELFPAY ==
[2024-09-01] VITALS (9 sets, daily range): BP systolic 115–143; BP diastolic 61–73; PULSE 74–87; RESP 16–20; TEMP 36.2; O2SAT 96–99
--- NOTE | 2024-09-01 08:07 | DI.RAD.S_ITS ---
PROCEDURE: PAIN L/SI FACET INJ/BLK 1STL INDICATIONS: Right L4-L5 and S1 medial branch block LA COMPARISON: None. FINDINGS: Fluoroscopic spot filming was performed to verify placement of spinal needles at the right L4, L5, and S1 medial branch level(s), as labeled on the films. Appropriate location(s) of the needle tip(s) was confirmed by injection of iodinated contrast. IMPRESSION: Fluoroscopic imaging provided for multilevel lumbar medial branch block performed by the referring pain specialist. Dictated by: Howard Huffman M.D. on 09/01/2024 at 11:45 Approved by: Howard Huffman M.D. on 09/01/2024 at 11:46
[2024-09-01] MEDS: MIDAZOLAM 2 MG/2 ML VIAL IV (08:16)
[2024-09-01] MEDS: BUPIVACAINE 0.5% (PF) 10 ML VIAL 2 ML INJ (08:24)
[2024-09-01] MEDS: iopamidoL 15 ML VIAL 3 ML INJ (08:24)
--- NOTE | 2024-09-01 08:52 | P.PCN_ITS ---
Date/Time/Diagnoses Date of procedure: 09/01/24 Time of procedure: 08:52 Pre-procedure diagnosis: 1. FACET ARTHROPATHY Post-procedure diagnosis: same Procedure Notes Procedure: 1. Right L4, L5 and S1 MB BLOCKS LA Indications: Dianne is referred by Dr. Moran for treatment of Right Axial LBP. Physician: Ross Lazcano Total Fluoroscopy time (seconds): 8 Total sedation minutes: 22 Complications: none Procedure in detail & Post-procedure care: DESCRIPTION OF PROCEDURE Fluoroscopically guided, contrast-controlled right L4, L5 and S1 medial branch blocks with 0.5cc of 0.5% Marcaine. Following review of allergy and review of potential side effects and complications, including, but not necessarily limited to, infection, allergic reaction, local tissue breakdown, nerve injury, paralysis, stroke and possible , the patient indicated that the patient understood and agreed to proceed. An informed consent document was signed by the patient, witnessed by a nurse, and placed in the patient's chart. After review of previous anaesthesic history and IV conscious sedation the patient was deemed safe to proceed with today?s procedure with IV conscious sedation as ASA class II designation. Safety time-out was performed to confirm patient ID, procedure to be performed and site of procedure. IV sedation was accomplished with a combination of 2mg of Versed was administered by the RN after DO order, titrated to patient comfort during the course of the procedure while the patient remained responsive to all verbal commands In the prone position, following sterile prep and drape of the lumbar region, the right L4, L5 and S1 anatomical location of the medial branch of the dorsal ramus was identified fluoroscopically. Subsequently an anesthetic skin wheal using 1% lidocaine solution was initiated at each of the anatomical spots. Subsequently then a 22-gauge 3.5-inch spinal needle was atraumatically introduced and advanced under fluoroscopic guidance at each of the corresponding sites at the right L4, L5 and S1 MB. After negative aspiration, 0.2 cc of Isovue 200 was injected, confirming placement without vascular or intrathecal uptake. Subsequently then 0.5 cc of 0.5% Marcaine solution was injected at each of the corresponding sites at the right L4, L5 and S1 medial branch locations. The patient tolerated the procedure well without signs or symptoms of complications. The procedure tolerated the procedure well without signs or symptoms of complications prior to transfer to the recovery area continued monitoring without incident. Post-procedure, the patient was monitored initiating provocative activities to measure the amount of relief from block of the facetogenic pain. The patient reported a VAS of 7 prior to the procedure and a post-procedure VAS of 1. It has been a pleasure to assist in the diagnostic and therapeutic care of your patient. POST OP INSTRUCTIONS The patient was provided with a Pain Log to complete over the next several hours and subsequent days prior to the patient's follow up with the ordering physician. If the patient has therapist speech relief to the solution applied, then they may be a candidate for medial branch rhizotomy. The patient is aware, was provided, once again, with a Pain Log and will follow up with the referring physician for review and clinical correlation.
== END 2024-09-01 09:15 | disposition home or self-care (01) ==
PROVIDERS: PCP Family Medicine; Referring Provider Physical Medicine & Rehabilitation; Visit Provider Physical Medicine & Rehabilitation
DX: M47.816 Spondylosis without myelopathy or radiculopathy, lumbar region (principal); M47.817 Spondylosis without myelopathy or radiculopathy, lumbosacral region
CPT/HCPCS: 64493; 64494; 99152; J2250

== ENCOUNTER → 2024-09-09 06:45 | Outpatient (CLI) | payer MEDICARE, OTHER, SELFPAY ==
[2024-09-09 07:54] LABS: Add Manual Diff / Slide Review NO; Basophils Absolute Auto 0 /uL (0-100); Eosinophils Absolute Auto 300 /uL (0-450); Hematocrit 40.6 % (36-46); Hemoglobin 13.6 g/dL (12.0-16.0); Lymphocytes Absolute Auto 1700 /uL (1100-4500); Lymphocytes Percent Auto 37.6 % (25-40); Mean Corpuscular HGB Conc 33.5 % (30-36); Mean Corpuscular Hemoglobin 30.7 PG (26-34); Mean Corpuscular Volume 91.4 fL (80-100); Monocytes Absolute Auto 400 /uL (0-900); Monocytes Percent Auto 9.7 % (3-14); Neutrophils Absolute Auto 2000 /uL (1500-7000); Neutrophils Percent Auto 45.7 % (50-75); Platelet Count 282 X10^3/uL (150-400); Red Blood Cell Count 4.44 X10^6/uL (4.0-5.2); Red Cell Distribution Width 13.1 % (11.6-14.8); White Blood Cell Count 4.5 X10^3/uL (4.5-11.0)
[2024-09-09 08:39] LABS: Alanine Aminotransferase 18 IU/L (<35); Albumin 4.1 g/dL (3.5-5.0); Albumin Globulin Ratio 1.6 (1.0-2.8); Alkaline Phosphatase 79 U/L (38-126); Aspartate Aminotransferase 21 IU/L (14-36); BUN Creatinine Ratio 25.4 (6-22); Bilirubin Total 0.5 mg/dL (0.2-1.3); Blood Urea Nitrogen 18 mg/dL (7-17); Calcium 9.6 mg/dL (8.4-10.2); Carbon Dioxide 27 mmol/L (22-32); Chloride 106 mmol/L (98-107); Cholesterol 189 mg/dL (140-199); Estimated Glomerular Filt Rate > 60 mL/min (>60); Globulin 2.6 g/dL (1.7-4.1); Glucose 98 mg/dL (80-110); HDL Cholesterol 66 mg/dL (40-60); HEMOLYSIS < 15 (0-50); LDL Cholesterol Calculated 101 mg/dL (<100); Potassium 4.2 mmol/L (3.4-5.1); Sodium 139 mmol/L (137-145); Total Protein 6.7 g/dL (6.3-8.2); Triglycerides 110 mg/dL (35-150)
[2024-09-09 08:41] LABS: Thyroid Stimulating Hormone 1.44 uIU/mL (0.47-4.68)
[2024-09-09 15:40] LABS: Creatinine Urine Random 108.34 mg/dL
[2024-09-09 15:47] LABS: Microalbumin Urine Random 1.2 mg/dL (0-1.6)
== END ==
PROVIDERS: PCP Family Medicine; Referring Provider Family Medicine; Visit Provider Family Medicine
DX: I10 Essential (primary) hypertension (principal); R10.33 Periumbilical pain; E07.9 Disorder of thyroid, unspecified; E78.2 Mixed hyperlipidemia; K62.5 Hemorrhage of anus and rectum
CPT/HCPCS: 36415; 80053; 80061; 82043; 82570; 84443; 85025

== ENCOUNTER 2024-11-12 09:34 | Outpatient (CLI) | payer MEDICARE, OTHER, SELFPAY ==
[2024-11-12] VITALS (8 sets, daily range): BP systolic 119–167; BP diastolic 55–74; PULSE 71–82; RESP 14–21; TEMP 36.1; O2SAT 96–100
--- NOTE | 2024-11-12 09:35 | DI.RAD.S_ITS ---
PROCEDURE: PAIN L/S FACET INJ/BLK 1ST ALICE INDICATIONS: Right L4-L5 and S1 medial branch block SA COMPARISON: None. FINDINGS/IMPRESSION: Fluoroscopic spot filming was performed to verify placement of spinal needles at the L4-5, S1 level(s), as labeled on the films. Appropriate location(s) of the needle tip(s) was confirmed by injection of iodinated contrast. Dictated by: Tyra Boyer M.D. on 11/12/2024 at 15:17 Approved by: Tyra Boyer M.D. on 11/12/2024 at 15:17
[2024-11-12] MEDS: MIDAZOLAM 2 MG/2 ML VIAL IV (10:40)
[2024-11-12] MEDS: LIDOCAINE 2% INJ SDV 5ML 1 ML INJ (10:43)
[2024-11-12] MEDS: iopamidoL 15 ML VIAL 3 ML INJ (10:44)
--- NOTE | 2024-11-12 10:53 | PM.PROC.IR.1 ---
Date/Time/Diagnoses Date of procedure: 11/12/24 Time of procedure: 10:53 Pre-procedure diagnosis: 1. FACET ARTHROPATHY Post-procedure diagnosis: same Procedure Notes Procedure: 1. Right L4, L5 and S1 MB BLOCKS LA Indications: Dianne is referred by Dr. Moran for treatment of Right Axial LBP. Physician: Ross Lazcano Total Fluoroscopy time (seconds): 6 Total sedation minutes: 10 Complications: none Procedure in detail & Post-procedure care: DESCRIPTION OF PROCEDURE Fluoroscopically guided, contrast-controlled right L4, L5 and S1 medial branch blocks with 0.5cc of 0.5% Marcaine. Following review of allergy and review of potential side effects and complications, including, but not necessarily limited to, infection, allergic reaction, local tissue breakdown, nerve injury, paralysis, stroke and possible , the patient indicated that the patient understood and agreed to proceed. An informed consent document was signed by the patient, witnessed by a nurse, and placed in the patient's chart. After review of previous anaesthesic history and IV conscious sedation the patient was deemed safe to proceed with today?s procedure with IV conscious sedation as ASA class II designation. Safety time-out was performed to confirm patient ID, procedure to be performed and site of procedure. IV sedation was accomplished with a combination of 2mg of Versed was administered by the RN after DO order, titrated to patient comfort during the course of the procedure while the patient remained responsive to all verbal commands In the prone position, following sterile prep and drape of the lumbar region, the right L4, L5 and S1 anatomical location of the medial branch of the dorsal ramus was identified fluoroscopically. Subsequently an anesthetic skin wheal using 1% lidocaine solution was initiated at each of the anatomical spots. Subsequently then a 22-gauge 3.5-inch spinal needle was atraumatically introduced and advanced under fluoroscopic guidance at each of the corresponding sites at the right L4, L5 and S1 MB. After negative aspiration, 0.2 cc of Isovue 200 was injected, confirming placement without vascular or intrathecal uptake. Subsequently then 0.5 cc of 0.5% Marcaine solution was injected at each of the corresponding sites at the right L4, L5 and S1 medial branch locations. The patient tolerated the procedure well without signs or symptoms of complications. The procedure tolerated the procedure well without signs or symptoms of complications prior to transfer to the recovery area continued monitoring without incident. Post-procedure, the patient was monitored initiating provocative activities to measure the amount of relief from block of the facetogenic pain. The patient reported a VAS of 7 prior to the procedure and a post-procedure VAS of 1. It has been a pleasure to assist in the diagnostic and therapeutic care of your patient. POST OP INSTRUCTIONS The patient was provided with a Pain Log to complete over the next several hours and subsequent days prior to the patient's follow up with the ordering physician. If the patient has band sawyer relief to the solution applied, then they may be a candidate for medial branch rhizotomy. The patient is aware, was provided, once again, with a Pain Log and will follow up with the referring physician for review and clinical correlation.
== END 2024-11-12 11:15 | disposition home or self-care (01) ==
PROVIDERS: PCP Family Medicine; Referring Provider Physical Medicine & Rehabilitation; Visit Provider Physical Medicine & Rehabilitation
DX: M47.816 Spondylosis without myelopathy or radiculopathy, lumbar region (principal); M47.817 Spondylosis without myelopathy or radiculopathy, lumbosacral region
CPT/HCPCS: 64493; 64494; 99152; J2250

== ENCOUNTER 2025-01-14 07:25 | Outpatient (CLI) | payer MEDICARE, OTHER, SELFPAY ==
[2025-01-14] VITALS (10 sets, daily range): BP systolic 117–134; BP diastolic 67–83; PULSE 66–82; RESP 14–18; TEMP 36.4; O2SAT 96–99
[2025-01-14] MEDS: MIDAZOLAM 2 MG/2 ML VIAL 1 MG IV ×2 (08:18→08:25)
[2025-01-14] MEDS: LIDOCAINE 1% 20 ML 5 ML INJ (08:27)
[2025-01-14] MEDS: BUPIVACAINE 0.5% (PF) 10 ML VIAL 5 ML INJ (08:28)
--- NOTE | 2025-01-14 08:46 | P.PCN_ITS ---
Date/Time/Diagnoses Date of procedure: 01/14/25 Time of procedure: 08:47 Pre-procedure diagnosis: 1. RECALCITRANT FACET ARTHROPATHY Post-procedure diagnosis: same Procedure Notes Procedure: 1. RIGHT L4 AND L5 MEDIAL BRANCH RADIOFREQUENCY NEUROTOMY AND RIGHT S1 DORSAL RAMUS BRANCH RADIOFREQUENCY NEUROTOMY Indications: Dianne is referred by Dr. Moran for treatment of facet arthropathy. Physician: Ross Lazcano Total Fluoroscopy time (seconds): 10 Total sedation minutes: 24 Complications: none Procedure in detail & Post-procedure care: DESCRIPTION OF PROCEDURE Right L4 and L5 medial branch radiofrequency neurotomy and right S1 dorsal ramus branch radiofrequency neurotomy under fluoroscopy with conscious sedation. The patient is well known to this clinic having undergone previous facet injections with good but temporary relief. The patient has experienced appropriate, concordant relief with previous facet and median branch blocks but the patient's pain has been recalcitrant to further conservative measures. Therefore, based upon the patient's relief and persistent symptoms, the patient is considered an appropriate candidate for facet rhizotomy. All of the patient's questions regarding the risks versus benefits of the procedure, including, but not limited to, bleeding, infection, temporary as well as lasting nerve injury, paralysis, stroke, and , as well treatment alternatives were answered to satisfaction. After review of previous anaesthesic history and IV conscious sedation the patient was deemed safe to proceed with today?s procedure with IV conscious sedation as ASA class II designation. Safety time-out was performed to confirm patient ID, procedure to be performed and site of procedure. IV sedation was accomplished with a combination of 2mg of Versed was administered by the RN after DO order, titrated to patient comfort during the course of the procedure while the patient remained responsive to all verbal commands. After obtaining informed consent, denial of pertinent drug allergies, as well as being made aware of the potential risks of bleeding, infection, spinal cord trauma, paralysis, temporary and permanent nerve damage, seizure, stroke, and possible , the patient was brought to the fluoroscopy suite and positioned prone on the fluoroscopy table. The lumbar region was prepped with Betadine and covered with a fenestrated drape in the usual sterile fashion. Appropriate monitors applied including pulse oximeter, pulse, and blood pressure for regular monitoring throughout the procedure. After local infiltration using 1% lidocaine, under fluoroscopic guidance, a 10- cm RF insulated needle with a 10-mm active tip was positioned parallel to the junction of the right sacral ala and the superior articulating process where the S1 dorsal ramus resides. Needle placement was confirmed with sensory stimulation at 50 Hz, with motor stimulation of .5v on the right which produced local stimulation without radicular component. The stimulation was then increased to 2v with, once again, only local multifidus stimulation without radicular component. This was then followed by two discreet lesions performed at 80 degrees Celsius for 90 seconds each. The needle was then removed and the identical procedure was performed along the length of the right L5 medial branch with motor stimulation at .7v on the right. The identical procedure was once again performed along the length of the right L4 medial branch with motor stimulation of .5v on the right. The patient tolerated the procedure well without signs or symptoms of complications prior to transfer to the recovery area continued monitoring without incident. The patient was then transferred to the recovery area where they were observed for an appropriate period of time after the injection. The patient was then transferred to the recovery area where they were observed for an appropriate period of time after the injection. The patient reported a VAS score of 8 prior to the procedure and a post- procedure VAS of 1. POST OP INSTRUCTIONS The patient was provided a Pain Log to continue to record the patient's response to the target-specific procedure prior to the patient's follow-up visit with the referring physician. Additionally, specific post-injection care instructions and a contact number to our office were provided if concerns arise regarding possible complications associated with the procedure are suspected.
== END 2025-01-14 09:00 | disposition home or self-care (01) ==
PROVIDERS: PCP Family Medicine; Referring Provider Physical Medicine & Rehabilitation; Visit Provider Physical Medicine & Rehabilitation
DX: M47.816 Spondylosis without myelopathy or radiculopathy, lumbar region (principal); M47.817 Spondylosis without myelopathy or radiculopathy, lumbosacral region
CPT/HCPCS: 64635; 64636; 99152; 99153; J2250

== ENCOUNTER 2025-04-29 12:23 | Outpatient (CLI) | payer MEDICARE, OTHER, SELFPAY ==
[2025-04-29] VITALS (8 sets, daily range): BP systolic 115–133; BP diastolic 72–76; PULSE 71–79; RESP 14–16; TEMP 36.6; O2SAT 95–98
[2025-04-29] MEDS: MIDAZOLAM 2 MG/2 ML VIAL IV (13:38)
[2025-04-29] MEDS: BUPIVACAINE 0.5% (PF) 10 ML VIAL 2 ML INJ (13:44)
[2025-04-29] MEDS: BETAMETHASONE 30 MG/5 ML MDV 12 MG INJ (13:44)
--- NOTE | 2025-04-29 14:02 | PM.PROC.IR.1 ---
Date/Time/Diagnoses Date of procedure: 04/29/25 Time of procedure: 14:02 Pre-procedure diagnosis: Sacroiliac joint pain/DJD Post-procedure diagnosis: same Procedure Notes Procedure: Fluoroscopically guided contrast controlled right sacroiliac joint injection Indications: Dianne is referred by Dr. Moran for treatment of right sacroiliac joint DJD Physician: Ross Lazcano Total Fluoroscopy time (seconds): 22 Total sedation minutes: 18 Complications: none Procedure in detail & Post-procedure care: DESCRIPTION OF PROCEDURE Fluoroscopically guided, contrast controlled right sacroiliac joint injection Following review of allergies and review of potential side effects and complications, including, but not necessarily limited to, infection, allergic reaction, local tissue breakdown, temporary as well as permanent nerve injury, paralysis, stroke and possible , the patient indicated that they understood and agreed to proceed. An informed consent was signed by the patient, witnessed by a nurse, and placed in the patient's chart. Additionally, other treatment options including modalities, medications, and physical therapy were reviewed with the patient. After review of previous anaesthesic history and IV conscious sedation the patient was deemed safe to proceed with today?s procedure with IV conscious sedation as ASA class II designation. Safety time-out was performed to confirm patient ID, procedure to be performed and site of procedure. IV sedation was accomplished with a combination of 2mg of Versed was administered by the RN after DO order, titrated to patient comfort during the course of the procedure while the patient remained responsive to all verbal commands In the prone position following sterile prep and drape of the pelvic region, the hyper lucency on in the inferior aspect of the sacroiliac joint was identified fluoroscopically the skin was anesthetized be a 25 gauge 1 eventual with approximately 2 cc of 1% lidocaine solution. At this point, a 22 gauge 3 in spinal needle was atraumatically introduced and advanced under fluoroscopic guidance into the inferior aspect of the right sacroiliac joint. Following negative aspiration, approximately 0.3cc of Isovue-300 was injected confirming intra-articular placement without vascular uptake. Radiographic data, including multiple fluoroscopic views of the pelvis, reveals a spinal needle in the sacroiliac joint hyper lucent zone. Subsequent view show flow contrast tear superiorly and inferiorly within the joint capsule without vascular intrathecal uptake. At this point a total of 1cc of 0.5% Marcaine was combined with 2cc of 12mg of betamethasone was injected without incident. The procedure tolerated the procedure well without signs or symptoms of complications prior to transfer to the recovery area continued monitoring without incident. The patient was then transferred to the recovery area with a bur observed for an appropriate time after the injection. The patient reverted a vas score of 7 prior to the procedure and post-procedure vas of 1. POSTOP INSTRUCTIONS The patient was provided with a pain like to continue to record the patient's response to the target specific procedure prior to the patient's follow-up visit with the referring physician. Additionally, specific post injection care instructions and a contact number to our office were provided if concerns arise regarding the possible complications associated with procedure are suspected.
== END 2025-04-29 14:10 | disposition home or self-care (01) ==
LOC: RAD 12:24
PROVIDERS: PCP Family Medicine; Referring Provider Physical Medicine & Rehabilitation; Visit Provider Physical Medicine & Rehabilitation
DX: M46.1 Sacroiliitis, not elsewhere classified (principal); M53.3 Sacrococcygeal disorders, not elsewhere classified
CPT/HCPCS: 27096; 99152; J0702; J2250

== ENCOUNTER → 2025-07-10 09:38 | Outpatient (CLI) | payer MEDICARE, OTHER, SELFPAY ==
--- NOTE | 2025-07-10 09:40 | DI.MRI.S_ITS ---
PROCEDURE: MR LUMBAR SPINE WO CON INDICATIONS: lumbar radiculopathy TECHNIQUE: Noncontrast sagittal T1 spin echo and T2 fast echo, sagittal STIR, and T2 fast spin echo through the lumbar spine. In cases with scoliosis, additional coronal T2 fast spin echo may be performed. COMPARISON: [facility], CR, XR LUMBAR SPINE WITH FLEXION EXTENSION 5 VIEWS, 04/13/2025, 7:34. [facility], CR, XR SCOLIOSIS STUDY, 07/01/2025, 8:45. [facility], MR, MR LUMBAR SPINE WO CON, 07/17/2024, 19:20. FINDINGS: Image quality: Excellent. Alignment and Curvature: Mild levoconvex curvature of the lumbar spine. Bone Marrow: Marrow is of normal overall signal. No acute vertebral body compression fractures. Spinal Cord: Conus medullaris terminates at the L1 level. Visualized cord demonstrates normal signal and size. Paraspinous Soft Tissues: No paravertebral masses. Grade 3 fatty infiltration of the paraspinous musculature. T12-L1: No significant spinal canal stenosis or neural foraminal narrowing. L1-L2: No significant spinal canal stenosis or neural foraminal narrowing. L2-L3: Disc desiccation and mild circumferential disc bulging. No significant spinal canal stenosis or neural foraminal narrowing. L3-L4: Disc desiccation and mild circumferential disc bulging as well as moderate bilateral facet hypertrophy. Findings result in mild narrowing of the spinal canal without significant neural foraminal narrowing. L4-L5: Disc desiccation and mild circumferential disc bulging as well as moderate bilateral facet hypertrophy. Findings result in mild narrowing of the spinal canal and mild bilateral neural foraminal narrowing. L5-S1: Disc desiccation and mild circumferential disc bulging as well as moderate bilateral facet hypertrophy. Findings not result in significant spinal canal stenosis or neural foraminal narrowing. Small right annular fissure again noted. IMPRESSION: Mild multilevel degenerative disc disease and facet hypertrophy as described in the body of the report, which do not appear significantly changed when compared to the MRI from 07/17/2024. Approved by: Mauricio Blanc M.D. on 07/12/2025 at 12:18
== END ==
LOC: MRI 09:39
PROVIDERS: PCP Family Medicine; Referring Provider Orthopaedic Surgery Orthopaedic Surgery of the Spine; Visit Provider Orthopaedic Surgery Orthopaedic Surgery of the Spine
DX: M47.816 Spondylosis without myelopathy or radiculopathy, lumbar region (principal); M47.817 Spondylosis without myelopathy or radiculopathy, lumbosacral region; M51.369 Other intervertebral disc degeneration, lumbar region without mention of lumbar back pain or lower extremity pain; M51.379 Other intervertebral disc degeneration, lumbosacral region without mention of lumbar back pain or lower extremity pain; M53.3 Sacrococcygeal disorders, not elsewhere classified
CPT/HCPCS: 72148

== ENCOUNTER → 2025-09-01 15:22 | Outpatient (CLI) | payer MEDICARE, OTHER, SELFPAY ==
--- NOTE | 2025-09-01 15:24 | DI.MG.S_ITS ---
MM screening mammo BI: 09/01/2025. BI-RADS: 1 CLINICAL: 69-year old female for bilateral screening mammogram. Tyrer-Cuzick lifetime risk of 14.6%. Current reported family history of breast cancer: mother. History of ovarian cancer in one first-degree relative. PRIOR EXAMS 08/24/2024, outside films dated 05/15/2022, 04/13/2021, and 04/01/2020. MAMMOGRAPHY TECHNIQUE: 2D and 3D (tomosynthesis) digital mammographic views obtained, with additional images as needed for full coverage. Current study was also evaluated with a Computer Aided Detection (CAD) system. DENSITY B. There are scattered areas of fibroglandular density. MAMMOGRAPHY FINDINGS Bilateral: No suspicious mass, asymmetry, microcalcification, or other abnormality seen. No significant change from comparison. IMPRESSION: * No evidence of malignancy. RECOMMENDATIONS Bilateral * Annual screening mammography. OVERALL ASSESSMENT CATEGORY BI-RADS-1: Negative. The [employer] recommends annual screening mammography beginning at age 40 for women with average risk of breast cancer. ELECTRONICALLY SIGNED: Portia Rader M.D. on 09/02/2025 at 12:30:36 PM PT Interpreting Station ID: [id number]
== END ==
LOC: MAMMO 15:24
PROVIDERS: PCP Family Medicine; Referring Provider Family Medicine; Visit Provider Family Medicine
DX: Z12.31 Encounter for screening mammogram for malignant neoplasm of breast (principal); Z80.3 Family history of malignant neoplasm of breast; Z80.41 Family history of malignant neoplasm of ovary
CPT/HCPCS: 77063; 77067

== ENCOUNTER → 2025-09-18 07:33 | Outpatient (CLI) | payer MEDICARE, OTHER, SELFPAY ==
[2025-09-18 08:52] LABS: Add Manual Diff / Slide Review NO; Hematocrit 40.4 % (36-46); Hemoglobin 13.7 g/dL (12.0-16.0); Lymphocytes Absolute Auto 1600 /uL (1100-4500); Mean Corpuscular HGB Conc 33.9 % (30-36); Mean Corpuscular Hemoglobin 30.4 PG (26-34); Mean Corpuscular Volume 89.8 fL (80-100); Platelet Count 299 X10^3/uL (150-400)
[2025-09-18 09:23] LABS: Alanine Aminotransferase 24 IU/L (<35); Albumin 4.3 g/dL (3.5-5.0); Albumin Globulin Ratio 1.5 (1.0-2.8); Alkaline Phosphatase 79 U/L (38-126); Blood Urea Nitrogen 15 mg/dL (7-17); Calcium 9.4 mg/dL (8.4-10.2); Carbon Dioxide 28 mmol/L (22-32); Chloride 103 mmol/L (98-107); Cholesterol 193 mg/dL (140-199); Estimated Glomerular Filt Rate > 60 mL/min (>60); Globulin 2.9 g/dL (1.7-4.1); Glucose 103 mg/dL (70-99); HDL Cholesterol 69 mg/dL (40-60); HEMOLYSIS < 15 (0-50); Potassium 4.3 mmol/L (3.4-5.1); Sodium 139 mmol/L (137-145); Total Protein 7.2 g/dL (6.3-8.2); Triglycerides 109 mg/dL (35-150)
[2025-09-18 09:52] LABS: TSH w/ Reflex to FT4 1.85 uIU/mL (0.47-4.68)
[2025-09-18 10:32] LABS: Microalbumi Creatinin Ratio Ur 11.0 ug/mg CR (<30)
== END ==
PROVIDERS: PCP Family Medicine; Referring Provider Family Medicine; Visit Provider Family Medicine
DX: I10 Essential (primary) hypertension (principal); M54.17 Radiculopathy, lumbosacral region; M47.816 Spondylosis without myelopathy or radiculopathy, lumbar region; M70.61 Trochanteric bursitis, right hip
CPT/HCPCS: 36415; 80053; 80061; 82043; 82570; 84443; 85025